=== PATIENT | male | born 1965 | race Asian ===

== ENCOUNTER 2017-01-27 08:53 | Inpatient (IN) | payer BC ==
[~2017-01-27] VITALS: Ht 170.2 cm; Wt 89.5 kg
[~2017-01-27 08:53] MED LIST: ENTOCORT PO; PRILOSEC OTC20 MG PO
[2017-01-27 09:55] LABS: PLATELET COUNT 239 x10^3mcL (130-400); RED CELL DISTRIBUTION WIDTH 14.4 % (11.5-14.5)
[2017-01-27 09:59] LABS: CALCIUM 8.6 mg/dL (8.5-10.1); CARBON DIOXIDE 29.5 mmol/L (21-32); CHLORIDE SERUM 106 mmol/L (98-107); GFR1 > 60 mL/min; GLUCOSE SERUM 132 mg/dL (74-106); POTASSIUM SERUM 3.7 mmol/L (3.5-5.1); SODIUM SERUM 142 mmol/L (136-145)
[2017-01-27 10:04] LABS: ALBUMIN 3.5 g/dL (3.4-5.0); ALKALINE PHOSPHATASE 100 U/L (46-116); ALT/SGPT 25 U/L (16-63); AMYLASE 42 U/L (25-115); AST/SGOT 14 U/L (15-37); BILIRUBIN TOTAL 0.4 mg/dL (0.20-1.00); LIPASE 141 IU/L (73-393); TOTAL PROTEIN, SERUM 7.3 g/dL (6.4-8.2)
[2017-01-27 11:03] LABS: BASOPHIL 0 % (0-2); SEGMENTED NEUTROPHILS 31 % (37-75)
[2017-01-27 11:04] LABS: BAND NEUTROPHIL 6 % (0-10); MONOCYTE 2 % (0-7)
[2017-01-27 11:06] LABS: burr cell (echinocyte) 1+; rbc morphology (normal/abnorm) ABNORMAL (NORMAL)
[2017-01-27 12:43] LABS: T3 TOTAL 0.98 ng/mL
[2017-01-27 12:44] LABS: CHOLESTEROL/HDL RATIO 5.4; MAGNESIUM 2.3 mg/dL (1.8-2.4); PHOSPHOROUS 3.2 mg/dL (2.5-4.9)
[2017-01-27 12:47] LABS: FREE T4 1.2 ng/dL (0.76-1.46); FREE THYROXINE INDEX 3.2 ug/dL (1.4-4.5); T4(THYROXINE) 9.5 ug/dL (4.7-13.3)
[2017-01-27 13:25] VITALS: BP 135/90
[2017-01-27 17:30] VITALS: BP 132/93
[2017-01-27 20:56] VITALS: BP 126/92
[2017-01-28 06:06] VITALS: BP 125/77
[2017-01-28 06:13] LABS: PLATELET COUNT 218 x10^3mcL (130-400)
[2017-01-28 06:39] LABS: CALCIUM 8.5 mg/dL (8.5-10.1); CHLORIDE SERUM 108 mmol/L (98-107); GFR1 > 60 mL/min; GLUCOSE SERUM 142 mg/dL (74-106); MAGNESIUM 2.4 mg/dL (1.8-2.4); PHOSPHOROUS 2.8 mg/dL (2.5-4.9); POTASSIUM SERUM 3.8 mmol/L (3.5-5.1); SODIUM SERUM 141 mmol/L (136-145)
[2017-01-28 06:42] LABS: RED CELL DISTRIBUTION WIDTH 14.6 % (11.5-14.5)
[2017-01-28 07:07] LABS: microscopic required? NO
[2017-01-28 07:53] LABS: UA SPECIFIC GRAVITY 1.025 (1.005-1.035); urine erythrocyte NEGATIVE (NEGATIVE)
[2017-01-28 08:32] LABS: AMPHETAMINE QUAL UR NONE DETECTED (NEG <=1000)
[2017-01-28 08:45] VITALS: BP 123/85
[2017-01-28] MEDS ORDERED: CLA10 PO (10:23)
[2017-01-28] MEDS ORDERED: FLA500 PO ×2 (10:26→12:48)
[2017-01-28] MEDS ORDERED: ZES10 PO (10:27)
[2017-01-28] MEDS ORDERED: CARL PO ×2 (10:29→12:48)
[2017-01-28] MEDS ORDERED: PRI20 PO (10:29)
[2017-01-28] MEDS ORDERED: MEDDP PO ×2 (10:30→12:48)
[2017-01-28 10:46] LABS: BAND NEUTROPHIL 3 % (0-10); BASOPHIL 0 % (0-2); MONOCYTE 1 % (0-7); PLATELET MORPHOLOGY PLATELETS NORMAL; SEGMENTED NEUTROPHILS 63 % (37-75); rbc morphology (normal/abnorm) ABNORMAL (NORMAL); tear drop cell (dacryocyte) 1+
[2017-01-28 12:22] VITALS: BP 123/85
== END 2017-01-28 13:30 | disposition home or self-care (01) | DRG 392 ==
LOC: ED 08:53 → MU 11:55 → DU 11:55 → MU 21:36
PROVIDERS: Emergency Medicine; ADMIT Family Medicine
DX: A08.4 Viral intestinal infection, unspecified (principal); D68.69 Other thrombophilia; K29.00 Acute gastritis without bleeding; E11.51 Type 2 diabetes mellitus with diabetic peripheral angiopathy without gangrene; K57.30 Diverticulosis of large intestine without perforation or abscess without bleeding; I10 Essential (primary) hypertension; Z68.30 Body mass index [BMI] 30.0-30.9, adult; Z87.891 Personal history of nicotine dependence; Z91.14 Patient's other noncompliance with medication regimen
CPT/HCPCS: 82962; 83880; 84439; J1956; J2405; J2930; J3010; J7030; Q0092

== ENCOUNTER 2017-08-23 22:27 | Emergency (ER) | payer BC ==
[~2017-08-23] VITALS: Ht 170.2 cm; Wt 82.5 kg
[~2017-08-23 22:27] MED LIST changes: +CARL PO; +CLA10 PO; +FLA500 PO; +MEDDP PO; +PRI20 PO; +ZES10 PO
[2017-08-23 22:32] VITALS: Ht 170.2 cm; Wt 82.5 kg
[2017-08-24 00:23] VITALS: BP 130/78
== END 2017-08-23 23:40 | disposition home or self-care (01) ==
LOC: ED 22:27
DX: J06.9 Acute upper respiratory infection, unspecified (principal)
CPT/HCPCS: Q0092